=== PATIENT | female | born 1990 | race Caucasian/White ===

== ENCOUNTER 2018-02-18 19:11 | Emergency (ER) | payer OTHER ==
[2018-02-18 22:01] VITALS: BP 139/62
== END 2018-02-18 22:01 | disposition home or self-care (01) ==
LOC: ED 19:11
DX: O29.42 Spinal and epidural anesthesia induced headache during pregnancy, second trimester (principal); Z3A.20 20 weeks gestation of pregnancy
CPT/HCPCS: J1200; J2765

== ENCOUNTER 2018-12-15 17:32 | Inpatient (IN) | payer OTHER ==
[~2018-12-15] VITALS: Ht 157.5 cm; Wt 98.0 kg
[2018-12-15 17:37] VITALS: Ht 157.5 cm; Wt 98.0 kg
--- NOTE | 2018-12-15 17:48 | NUR ---
PT AMBULATORY WITH STEADY GAIT TO RESTROOM
--- NOTE | 2018-12-15 17:50 | NUR ---
PT C/O SHARP MID ABD PAIN WITH 2 EPISODES OF VOMITING 1 HR VP MEDICAL, PT DENIES ANY RECENT TRAUMA AND/OR INJURY, PT DENIES ANY DIARRHEA, CONSTIPATION, FEVERS, AND/OR ACTIVE BLEEDING AND/OR URINARY S/S AT THIS TIME. PT AAOX4, RESPS E/U, SKIN PINK DRY WARM, ABD SOFT ROUND NONDISTENDED HOWEVER TENDER UPON PALPATION, PT DENIES NAUSEA AT THIS TIME, PT GOWNED IN NAD AT THIS TIME AWAITING MSE
--- NOTE | 2018-12-15 17:54 | NUR ---
MD ALEX AT BEDSIDE PERFORMING MSE
--- NOTE | 2018-12-15 18:14 | NUR ---
LAB AT BEDSIDE
--- NOTE | 2018-12-15 18:25 | NUR ---
PORTABLE US AT BEDSIDE
[2018-12-15 18:34] LABS: UA SPECIFIC GRAVITY >=1.030 (1.005-1.035); microscopic required? YES; urine erythrocyte 1+ (NEGATIVE)
[2018-12-15 18:35] LABS: BASOPHIL % 0.1 % (0-2); PLATELET COUNT 314 x10^3mcL (130-400); RED CELL DISTRIBUTION WIDTH 13.4 % (11.5-14.5)
[2018-12-15 18:39] LABS: CALCIUM 8.6 mg/dL (8.5-10.1); CARBON DIOXIDE 27.9 mmol/L (21-32); CHLORIDE SERUM 103 mmol/L (98-107); CREATININE SERUM 0.8 mg/dL (0.6-1.0); GFR1 > 60 mL/min; GLUCOSE SERUM 92 mg/dL (74-106); POTASSIUM SERUM 3.6 mmol/L (3.5-5.1); SODIUM SERUM 140 mmol/L (136-145)
[2018-12-15 18:40] LABS: ALBUMIN 4.1 g/dL (3.4-5.0); ALKALINE PHOSPHATASE 65 U/L (46-116); ALT/SGPT 24 U/L (14-59); AST/SGOT 18 U/L (15-37); BILIRUBIN TOTAL 0.3 mg/dL (0.20-1.00); CHOLESTEROL 190 mg/dL (<200); HDL CHOLESTEROL 47 mg/dL (40-60); LIPASE 136 IU/L (73-393); TOTAL PROTEIN, SERUM 8.5 g/dL (6.4-8.2)
--- NOTE | 2018-12-15 19:10 | NUR ---
REPORT GIVEN TO CASSI ROMERO RN, WHO IS RESUMING CARE OF PT AT THIS TIME
--- NOTE | 2018-12-15 19:33 | NUR ---
PT STATES THAT SHE FEELS MUCH BETTER AT THIS TIME AND DENEIS N/V/ OR ABDOMINAL PAIN AT THIS TIME
--- NOTE | 2018-12-15 21:36 | NUR ---
BLOOD CULTURES REQUESTED. SECOND IV ABX STARTED A THIS TIME
--- NOTE | 2018-12-15 21:41 | NUR ---
REPORT GIVEN TO SURGERY RN MADHURI. PT JUST TAKEN FOR SURGERY REPORT GIVEN TO TERRA AMBROCIO AND INFORMED HIM PT WAS JUST TAKEN TO SURGERY
[2018-12-15 21:42] LABS: T3 TOTAL 1.02 ng/mL
[2018-12-15 21:51] LABS: FREE T4 1.05 ng/dL (0.76-1.46); FREE THYROXINE INDEX 3.2 ug/dL (1.4-4.5); T4(THYROXINE) 9.4 ug/dL (4.7-13.3)
[2018-12-15 23:44] VITALS: BP 120/79
--- NOTE | 2018-12-15 23:55 | NUR ---
RECEIVED FROM PACU VIA GUERNEY. AWAKE AND ALERT, ORIENTED TO NAME, PLACE, TIME AND SITUATION. SPEECH CLEAR AND APPROPRIATE. BREATHING EVEN AND UNLABORED ON ROOM AIR. LUNG SOUNDS CLEAR. S/P LAP APPENDECTOMY. 3 SURGICAL WOUNDS TO ABDOMEN WITH DERMABOND. STATED HAVING 8/10 PAIN TO OPERATIVE SITE. DENIES HAVING NAUSEA AT THIS TIME. SALINE LOCK TO LEFT AC. HOB ELEVATED 30 DEG. INSTRUCTED ON USE OF CALL LIGHT TO CALL FOR ASSISTANCE. PLACED WITHIN EASY REACH. ENDORSED TO NURSE NICHOLAS
--- NOTE | 2018-12-16 02:15 | NUR ---
PT C/O 10 ABD PAIN AND ITCHINESS, MEDICATED PER EMAR. LAP SITE, CDI. WILL CONTINUE TO MONITOR.
[2018-12-16 04:39] VITALS: BP 99/58
[2018-12-16 05:52] LABS: AMPHETAMINE QUAL UR NONE DETECTED (See below)
--- NOTE | 2018-12-16 06:45 | NUR ---
PT SLEPT COMFORTABLY IN INTERVALS THROUGHOUT THE SHIFT. ALL NEEDS TENDED TO AND MET. ALL SCHEDULED MEDICATIONS GIVEN. C/O ABD PAIN AND ITCHINESS MEDICATED PER EMAR. S/P LAP ULICES SITES, SECURED WITH SUTURES AND DERMABOND, CDI. BED IN LOWEST POSITION. SIDE RAILS UPX2. CALL LIGHT WITHIN REACH. WILL ENDORSE TO ONCOMING SHIFT.
--- NOTE | 2018-12-16 07:30 | NUR ---
PT STANDING AT BEDSIDE A/A. BREATHING EQUAL/ UNLABORED ON RA. IVF RUNNING AT 80 ML/HR. NO REDNESS/ SWELLING TO IV SITE. ABD INCISIONS CLOSED WITH SUTURES/ DERMABOND. PT C/O OF 8 ABD PAIN. BED IN LOW POSITION, CALL LIGHT IN REACH. WILL CONTINUE TO MONITOR
[2018-12-16 07:47] LABS: BASOPHIL % 0.2 % (0-2); PLATELET COUNT 323 x10^3mcL (130-400); RED CELL DISTRIBUTION WIDTH 13.8 % (11.5-14.5)
[2018-12-16 07:54] LABS: CARBON DIOXIDE 24.9 mmol/L (21-32); CHLORIDE SERUM 105 mmol/L (98-107); CREATININE SERUM 0.9 mg/dL (0.6-1.0); GFR1 > 60 mL/min; GLUCOSE SERUM 127 mg/dL (74-106); POTASSIUM SERUM 4.3 mmol/L (3.5-5.1); SODIUM SERUM 139 mmol/L (136-145)
[2018-12-16 09:09] VITALS: BP 122/65
--- NOTE | 2018-12-16 12:02 | NUR ---
PT WALKING AROUND UNIT. BREATHING EQUAL/ UNLABORED. IV ABX RUNNING AT 100ML/HR. NO REDNESS/ SWELLING TO IV SITE. ABD INCISIONS CDI. WILL CONTINUE TO MONITOR
[2018-12-16] MEDS ORDERED: LEVAQUIN750 MG PO (14:28)
[2018-12-16] MEDS ORDERED: NORCO1 TA1 PO (14:29)
[2018-12-16] MEDS ORDERED: FLA500 PO (14:29)
[2018-12-16 15:04] VITALS: BP 122/65
--- NOTE | 2018-12-16 15:33 | NUR ---
PT A/A, ORIENTED X 4. BREATHING EQUAL/ UNLABORED, NO ACUTE DISTRESS. EDUCATION PROVIDED TO PT, PT VERBALIZED UNDERSTANDING. F/U APPT DISCUSSED WITH PT. NEW RX GIVEN TO PT. IV REMOVED WITH CATHETER INTACT. ALL BELONGINGS WITH PT. PT DC'D TO HOME. BROUGHT DOWN TO LOBBY IN W/C, BY FACTORY ASSEMBLER.
== END 2018-12-16 15:35 | disposition home or self-care (01) | DRG 710 ==
LOC: ED 17:32 → MU 20:25
PROVIDERS: Emergency Medicine; Surgery; ADMIT General Practice
PROC: 0DTJ4ZZ Resection of Appendix, Percutaneous Endoscopic Approach (ICD-10-PCS; principal; 2018-12-15 21:30)
DX: A41.9 Sepsis, unspecified organism (principal); K35.80 Unspecified acute appendicitis; E66.9 Obesity, unspecified; G43.909 Migraine, unspecified, not intractable, without status migrainosus; Z83.3 Family history of diabetes mellitus; Z68.37 Body mass index [BMI] 37.0-37.9, adult
CPT/HCPCS: 84439; 90658; G0378; J0295; J0330; J0500; J1170; J1200; J1885; J2405; J2543; J2704; J2710; J3010; J3490; J7030; J7120; Q0092